=== PATIENT | male | born 2000 | race Caucasian/White ===

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

== ENCOUNTER → 2020-03-04 10:31 | Outpatient (CLI) | payer OTHER, SELFPAY ==
--- NOTE | 2020-03-04 10:33 | DI.US.S_ITS ---
PROCEDURE: US SCROTUM INDICATIONS: Scrotal varices TECHNIQUE: Real-time scanning was performed of the scrotum and testicles, with image documentation. Color and pulse Doppler interrogation was performed of both testicles. COMPARISON: [facility], , US SCROTUM, 09/20/2019, 10:45. FINDINGS: Right: Testicle is normal in size at 2.3 x 2.9 x 4.7 cm, and homogenous in echotexture. Epididymis is normal in overall size and morphology. No significant hydrocele or varicoceles. Overlying scrotal skin is normal in thickness. Left: Testicle is normal in size at 2.0 x 3.0 x 4.8 cm, and homogeneous in echotexture. Epididymis is normal in overall size and morphology. No significant hydrocele or varicoceles. Overlying scrotal skin is normal in thickness. Doppler: Color and pulse Doppler demonstrate normal and symmetric arterial flow in both testicles. IMPRESSION: Resolution of prior right-sided hydrocele and left-sided varicocele. Normal testicular size and blood flow, normal echotexture. No evidence of underlying infection or neoplasm found. Dictated by: Layo Kelly M.D. on 03/04/2020 at 15:00 Approved by: Layo Kelly M.D. on 03/04/2020 at 15:02
== END ==
PROVIDERS: PCP Family Medicine; Referring Provider Specialist; Visit Provider Specialist
DX: I86.1 Scrotal varices (principal)
CPT/HCPCS: 76870

== ENCOUNTER → 2021-03-22 12:31 | Outpatient (CLI) | payer OTHER, SELFPAY ==
[2021-03-22 19:13] LABS: Alanine Aminotransferase 29 IU/L (<50); Albumin 4.2 g/dL (3.5-5.0); Albumin Globulin Ratio 1.6 (1.0-2.8); Alkaline Phosphatase 78 U/L (38-126); Aspartate Aminotransferase 40 IU/L (17-59); BUN Creatinine Ratio 17.6 (6-22); Blood Urea Nitrogen 16 mg/dL (9-20); Calcium 9.5 mg/dL (8.4-10.2); Carbon Dioxide 34 mmol/L (22-32); Chloride 101 mmol/L (98-107); Estimated Glomerular Filt Rate > 60.0 mL/min (>60); Globulin 2.7 g/dL (1.7-4.1); Glucose 65 mg/dL (70-100); HEMOLYSIS < 15 (0-50); Potassium 4.2 mmol/L (3.4-5.1); Sodium 137 mmol/L (137-145); Total Protein 6.9 g/dL (6.3-8.2)
== END ==
PROVIDERS: PCP Physician Assistant Medical; Visit Provider Physician Assistant
DX: Z79.899 Other long term (current) drug therapy (principal)
CPT/HCPCS: 80053

== ENCOUNTER → 2021-04-19 12:35 | Outpatient (CLI) | payer OTHER, SELFPAY ==
--- NOTE | 2021-04-19 12:36 | DI.US.S_ITS ---
PROCEDURE: US SCROTUM INDICATIONS: FOLLOW UP BILATERAL VARICOCELES TECHNIQUE: Real-time scanning was performed of the scrotum and testicles, with image documentation. Color and pulse Doppler interrogation was performed of both testicles. COMPARISON: [facility], US SCROTUM, 03/04/2020, 10:44. [facility], US SCROTUM, 09/20/2019, 10:45. FINDINGS: Right: Testicle is normal in size at 4.5 x 2.3 x 2.9 cm, and homogenous in echotexture. Epididymis is normal in overall size and morphology. No hydrocele or varicoceles. Overlying scrotal skin is normal in thickness. Left: Testicle is normal in size at 4.6 x 2.2 x 2.7 cm, and homogeneous in echotexture. Epididymis is normal in overall size and morphology. No hydrocele or varicoceles. Overlying scrotal skin is normal in thickness. Doppler: Color and pulse Doppler demonstrate normal and symmetric arterial flow in both testicles. IMPRESSION: Normal testicular sonogram. No sonographic evidence of varicoceles or hydroceles. Dictated by: Torie Sosa MD, PhD on 04/19/2021 at 15:16 Approved by: Torie Sosa MD, PhD on 04/19/2021 at 15:19
== END ==
PROVIDERS: PCP Physician Assistant Medical; Referring Provider Physician Assistant; Visit Provider Physician Assistant
DX: I86.1 Scrotal varices (principal)
CPT/HCPCS: 76870

== ENCOUNTER → 2022-04-12 08:00 | Outpatient (CLI) | payer OTHER, SELFPAY ==
[2022-04-12 21:50] LABS: Urine N gonorrhoeae NOT DETECTED
[2022-04-12 21:55] LABS: Urine Chlamydia NOT DETECTED
== END ==
PROVIDERS: PCP Physician Assistant Medical; Visit Provider Physician Assistant Medical
DX: Z00.00 Encounter for general adult medical examination without abnormal findings (principal); Z20.2 Contact with and (suspected) exposure to infections with a predominantly sexual mode of transmission
CPT/HCPCS: 87491; 87591

== ENCOUNTER → 2022-04-18 13:38 | Outpatient (CLI) | payer OTHER, SELFPAY ==
--- NOTE | 2022-04-18 13:39 | DI.US.S_ITS ---
PROCEDURE: US SCROTUM INDICATIONS: CHRONIC INTERMITTENT LEFT TESTICULAR LUMP TECHNIQUE: Real-time scanning was performed of the scrotum and testicles, with image documentation. Color and pulse Doppler interrogation was performed of both testicles. COMPARISON: [facility], , US SCROTUM, 04/19/2021, 13:07. FINDINGS: Right: Testicle is normal in size at 4.6 x 2.9 x 2.2 cm, and homogenous in echotexture. Epididymis is normal in overall size and morphology. No hydrocele or varicoceles. Overlying scrotal skin is normal in thickness. Left: Testicle is normal in size at 4.6 x 3.0 x 2.0 cm, and homogeneous in echotexture. Epididymis is normal in overall size and morphology. No hydrocele or varicoceles. Overlying scrotal skin is normal in thickness. No abnormality is seen within the region of clinically palpable abnormality. Doppler: Color and pulse Doppler demonstrate normal and symmetric arterial flow in both testicles. IMPRESSION: Negative examination. Dictated by: Olya Wahl M.D. on 04/18/2022 at 15:52 Transcribed by: [email or web address] on 04/18/2022 at 15:52 Approved by: Olya Wahl M.D. on 04/18/2022 at 16:52
== END ==
PROVIDERS: PCP Physician Assistant Medical; Referring Provider Physician Assistant Medical; Visit Provider Physician Assistant Medical
DX: I86.1 Scrotal varices (principal)
CPT/HCPCS: 76870